=== PATIENT | female | born 1945 | race Caucasian/White ===

== ENCOUNTER → 2018-07-19 | Outpatient (CLI) | payer OTHER ==
[2018-07-19 18:44] LABS: ANION GAP 4 MEQ/L (8-16); BLOOD UREA NITROGEN 13 MG/DL (7-18); CALCIUM LEVEL 8.4 MG/DL (8.8-10.2); CARBON DIOXIDE LEVEL 29 MEQ/L (21-32); CHLORIDE LEVEL 110 MEQ/L (98-107); CREATININE FOR GFR 1.27 MG/DL (0.55-1.30); GLOMERULAR FILTRATION RATE 44.2 (>39); GLUCOSE, FASTING 89 MG/DL (70-100); POTASSIUM SERUM 4.6 MEQ/L (3.5-5.1); SODIUM LEVEL 143 MEQ/L (136-145)
== END ==
LOC: M WUC 13:29
DX: I10 Essential (primary) hypertension (principal); E78.5 Hyperlipidemia, unspecified
CPT/HCPCS: 80048

== ENCOUNTER → 2019-05-30 | Outpatient (CLI) | payer OTHER ==
--- NOTE | 2019-06-08 10:56 | DEXA ---
AP SPINE L1 - L4 1.308 0.9 2.6 LT FEMUR TOTAL 0.829 -1.4 0.2 LT NECK 0.770 -1.9 -0.1 RT FEMUR TOTAL 0.799 -1.7 -0.1 RT NECK 0.683 -2.6 -0.8 TOTAL BODY TOTAL OTHER L1-2 1.116 -0.5 1.9 COMMENTS: Normal bone densitometry of the spine. There is low bone density of the left hip. There is osteoporosis of the right hip. The increased density of the spine does represent a significant change. The increased density of the left hip does not represent significant change. The increased density of the right hip does not represent a significant change. The density of the L1-L2 spine has increased 12.2% since the initial exam on 01/07/2000. The L1-L2 spine density has increased 3.3% since the most recent exam on 03/31/2017. The density of the left hip has increased ointment .01% since the initial exam on 01/07/2000. The density of the left hip has increased 1.6% since the most recent exam on 03/31/2017. The density of the right hip has decreased 5.3% since the initial exam on 01/07/2000. The density of the right hip has increased 1.0% since the most recent exam on 03/31/2017. FOLLOW-UP: Recommendation for the next bone density exam: 2 years. EFREN
== END ==
LOC: M WHC 10:28
PROVIDERS: ATTEND Obstetrics & Gynecology
DX: Z13.820 Encounter for screening for osteoporosis (principal); M81.0 Age-related osteoporosis without current pathological fracture

== ENCOUNTER → 2019-07-12 | Outpatient (CLI) | payer OTHER ==
[2019-07-12 17:29] LABS: BASO # 0.1 10^3/uL (0.0-0.2); BASO % 1.2 % (0.0-1.0); EOS # 0.4 10^3/uL (0.0-0.5); EOS % 5.8 % (0.0-3.0); HEMATOCRIT 36.5 % (36.0-47.0); HEMOGLOBIN 12.3 g/dl (12.0-15.5); LYMPH # 2.3 10^3/uL (1.5-5.0); LYMPH % 30.5 % (24.0-44.0); MEAN CORPUSCULAR HEMOGLOBIN 31.8 pg (27.0-33.0); MEAN CORPUSCULAR HGB CONC 33.7 g/dl (32.0-36.5); MEAN CORPUSCULAR VOLUME 94.3 fl (80.0-96.0); MONO # 0.7 10^3/uL (0.0-0.8); MONO % 8.6 % (0.0-5.0); NEUTROPHILS # 4.1 10^3/uL (1.5-8.5); NEUTROPHILS % 53.5 % (36.0-66.0); PLATELET COUNT, AUTOMATED 260 10^3/uL (150-450); RED BLOOD COUNT 3.87 10^6/uL (4.00-5.40); WHITE BLOOD COUNT 7.7 10^3/uL (4.0-10.0)
[2019-07-12 17:38] LABS: APPEARANCE, URINE CLOUDY (CLEAR); BACTERIA, URINE AUTO 1+ (NEGATIVE); BILIRUBIN, URINE AUTO NEGATIVE (NEGATIVE); BLOOD, URINE BLOOD NEGATIVE (NEGATIVE); COLOR, URINE YELLOW (YELLOW); GLUCOSE, URINE (UA) AUTO NEGATIVE (NEGATIVE); KETONE, URINE AUTO NEGATIVE (NEGATIVE); LEUKOCYTE ESTERASE, URINE AUTO TRACE (NEGATIVE); MUCUS, URINE LARGE (NEGATIVE); NITRITE, URINE AUTO NEGATIVE (NEGATIVE); PROTEIN, URINE AUTO NEGATIVE (NEGATIVE); RBC, URINE AUTO 3 /HPF (0-3); SPECIFIC GRAVITY URINE AUTO 1.014 (1.002-1.035); SQUAMOUS EPITHELIAL CELL UR AU 15 /HPF (0-6); UROBILINOGEN, URINE AUTO 0.2 mg/dL (0.0-2.0); WBC, URINE AUTO 27 /HPF (0-3)
[2019-07-12 17:45] LABS: ALBUMIN 3.5 GM/DL (3.2-5.2); BILIRUBIN,TOTAL 0.7 MG/DL (0.2-1.0); CALCIUM LEVEL 9.2 MG/DL (8.8-10.2); CHOLESTEROL RISK RATIO 1.935 (<5); CREATININE FOR GFR 1.24 MG/DL (0.55-1.30); GLOMERULAR FILTRATION RATE 45.3 (>39); POTASSIUM SERUM 5.1 MEQ/L (3.5-5.1); THYROID STIMULATING HORMONE 1.36 uIU/ML (0.358-3.740); TOTAL PROTEIN 6.8 GM/DL (6.4-8.2)
== END ==
LOC: M WUC 12:13
DX: Z00.00 Encounter for general adult medical examination without abnormal findings (principal)

== ENCOUNTER → 2020-06-06 | Outpatient (CLI) | payer OTHER ==
[2020-06-06 18:40] LABS: ALBUMIN 3.7 GM/DL (3.2-5.2); BILIRUBIN,TOTAL 0.4 MG/DL (0.2-1.0); CALCIUM LEVEL 8.7 MG/DL (8.8-10.2); CHOLESTEROL RISK RATIO 2.293 (<5); CREATININE FOR GFR 1.19 MG/DL (0.55-1.30); GLOMERULAR FILTRATION RATE 47.3 (>39); POTASSIUM SERUM 4.4 MEQ/L (3.5-5.1)
== END ==
LOC: M WUC 14:40
PROVIDERS: ATTEND Internal Medicine Advanced Heart Failure and Transplant Cardiology
DX: E78.5 Hyperlipidemia, unspecified (principal)

== ENCOUNTER → 2022-07-16 | Outpatient (CLI) | payer OTHER ==
[2022-07-16 16:29] LABS: APPEARANCE, URINE MANUAL HAZY (CLEAR); COLOR, URINE MANUAL LT YELLOW (YELLOW)
[2022-07-16 16:30] LABS: BILIRUBIN, URINE MANUAL NEGATIVE (NEGATIVE); BLOOD URINE MANUAL NEGATIVE (NEGATIVE); GLUCOSE, URINE (UA) MANUAL NEGATIVE (NEGATIVE); KETONE, URINE MANUAL NEGATIVE (NEGATIVE); LEUKOCYTE ESTERASE, URINE MAN NEGATIVE (NEGATIVE); NITRITE, URINE MANUAL NEGATIVE (NEGATIVE); PROTEIN, URINE MANUAL NEGATIVE (NEGATIVE); UROBILINOGEN, URINE MANUAL NORMAL (NORMAL)
[2022-07-16 16:47] LABS: BASO # 0.1 10^3/uL (0.0-0.2); BASO % 0.7 % (0.0-1.0); EOS # 0.3 10^3/uL (0.0-0.5); EOS % 2.6 % (0.0-3.0); HEMATOCRIT 39.7 % (36.0-47.0); HEMOGLOBIN 13.1 g/dl (12.0-15.5); LYMPH # 2.3 10^3/uL (1.5-5.0); LYMPH % 22.6 % (24.0-44.0); MEAN CORPUSCULAR HEMOGLOBIN 31.1 pg (27.0-33.0); MEAN CORPUSCULAR VOLUME 94.3 fl (80.0-96.0); MONO # 0.9 10^3/uL (0.0-0.8); MONO % 9.1 % (2.0-8.0); NEUTROPHILS # 6.4 10^3/uL (1.5-8.5); NEUTROPHILS % 64.6 % (36.0-66.0); PLATELET COUNT, AUTOMATED 221 10^3/uL (150-450); RED BLOOD COUNT 4.21 10^6/uL (4.00-5.40)
[2022-07-16 16:51] LABS: BACTERIA, URINE SMALL AMOUNT; HYALINE CAST, URINE NONE SEEN /lpf (0-1); RBC, URINE NONE SEEN /hpf (0-3); SQUAMOUS EPITHELIAL CELL URINE LARGE AMOUNT /hpf (SMALL AMT)
[2022-07-16 17:32] LABS: HEMOGLOBIN A1c 5.4 %
[2022-07-16 17:36] LABS: ALBUMIN 3.8 GM/DL (3.2-5.2); BILIRUBIN,TOTAL 0.4 MG/DL (0.2-1.0); CHOLESTEROL RISK RATIO 1.94 (<5); CREATININE FOR GFR 1.25 MG/DL (0.55-1.30); FREE T4 1.32 NG/DL (0.76-1.46); GLOMERULAR FILTRATION RATE 44.5 (>39); THYROID STIMULATING HORMONE 0.656 uIU/ML (0.358-3.740); TOTAL PROTEIN 7.3 GM/DL (6.4-8.2)
== END ==
LOC: M WUC 14:18
DX: Z00.00 Encounter for general adult medical examination without abnormal findings (principal); E53.8 Deficiency of other specified B group vitamins; I10 Essential (primary) hypertension; R73.03 Prediabetes

== ENCOUNTER → 2023-06-23 | Outpatient (REF) | payer OTHER | LOC: M WUC 19:29 | PROVIDERS: ATTEND Nurse Practitioner Family | DX: R30.0 Dysuria (principal) ==

== ENCOUNTER → 2024-03-04 | Outpatient (REF) | payer OTHER | LOC: M WUC 18:56 | PROVIDERS: ATTEND Physician Assistant | DX: N30.01 Acute cystitis with hematuria (principal) ==

== ENCOUNTER → 2024-03-28 | Outpatient (REF) | payer OTHER ==
[2024-03-28 18:14] LABS: APPEARANCE, URINE HAZY (CLEAR); BACTERIA, URINE AUTO NEGATIVE (NEGATIVE); BILIRUBIN, URINE AUTO NEGATIVE (NEGATIVE); BLOOD, URINE BLOOD NEGATIVE (NEGATIVE); COLOR, URINE YELLOW (YELLOW); GLUCOSE, URINE (UA) AUTO NEGATIVE (NEGATIVE); KETONE, URINE AUTO NEGATIVE (NEGATIVE); LEUKOCYTE ESTERASE, URINE AUTO 3+ (NEGATIVE); NITRITE, URINE AUTO NEGATIVE (NEGATIVE); PROTEIN, URINE AUTO NEGATIVE (NEGATIVE); RBC, URINE AUTO 3 /HPF (0-3); SPECIFIC GRAVITY URINE AUTO 1.017 (1.002-1.035); SQUAMOUS EPITHELIAL CELL UR AU 7 /HPF (0-6); UROBILINOGEN, URINE AUTO 0.2 mg/dL (0.0-2.0); WBC, URINE AUTO 17 /HPF (0-3)
== END ==
LOC: M LABWUC 16:05
PROVIDERS: ATTEND Physician Assistant
DX: R31.29 Other microscopic hematuria (principal); R30.0 Dysuria

== ENCOUNTER → 2024-03-30 | Outpatient (REF) | payer OTHER | LOC: M LABWUC 16:13 | PROVIDERS: ATTEND Physician Assistant | DX: R39.9 Unspecified symptoms and signs involving the genitourinary system (principal) ==

== ENCOUNTER 2024-04-10 18:19 | Inpatient (IN) | payer OTHER ==
[~2024-04-10] VITALS: Ht 154.9 cm; Wt 75.9 kg
[2024-04-10 19:05] LABS: BASO % 0.2 % (0.0-1.0); EOS # 0.1 10^3/uL (0.0-0.5); EOS % 1.1 % (0.0-3.0); HEMATOCRIT 31.9 % (36.0-47.0); HEMOGLOBIN 10.9 g/dl (12.0-15.5); LYMPH # 1.5 10^3/uL (1.5-5.0); MEAN CORPUSCULAR HEMOGLOBIN 33.4 pg (27.0-33.0); MEAN CORPUSCULAR HGB CONC 34.2 g/dl (32.0-36.5); MEAN CORPUSCULAR VOLUME 97.9 fl (80.0-96.0); MONO # 1.9 10^3/uL (0.0-0.8); MONO % 14.8 % (2.0-8.0); NEUTROPHILS # 9.2 10^3/uL (1.5-8.5); NEUTROPHILS % 71.5 % (36.0-66.0); PLATELET COUNT, AUTOMATED 189 10^3/uL (150-450); RED BLOOD COUNT 3.26 10^6/uL (4.00-5.40); WHITE BLOOD COUNT 12.9 10^3/uL (4.0-10.0)
[2024-04-10 19:30] LABS: BILIRUBIN,DIRECT 0.1 MG/DL (<0.4); BILIRUBIN,TOTAL 0.4 MG/DL (0.3-1.2); CALCIUM LEVEL 7.6 MG/DL (8.3-10.6); CREATININE FOR GFR 1.87 MG/DL (0.55-1.30); GLOMERULAR FILTRATION RATE 27.8 (>39); POTASSIUM SERUM 4.7 MMOL/L (3.5-5.1); TOTAL PROTEIN 5.8 G/DL (5.7-8.2)
[2024-04-10 20:18] LABS: CK-MB VALUE MASS 1.2 NG/ML (<3.6)
[2024-04-10] MEDS: METOCLOPRAMIDE INJ 10MG/2ML VIAL IV ONE (20:19)
[2024-04-10] MEDS: NS 1,000 ML IV ONE (20:20)
[2024-04-10 20:23] LABS: MAGNESIUM LEVEL 1.4 MG/DL (1.8-2.4)
[2024-04-10 20:24] LABS: MB/CK RELATIVE INDEX 0.49 (< OR =4)
[2024-04-10 20:27] LABS: PROCALCITONIN 0.27 ng/ml
[2024-04-10] MEDS: MAG SULF 1GM/100ML (MAG RUN) 1 GM in IV 1 EA IV ONE (22:00)
[2024-04-10 22:57] LABS: CK-MB VALUE MASS 1.1 NG/ML (<3.6)
[2024-04-10 23:05] LABS: MB/CK RELATIVE INDEX 0.31 (< OR =4)
[2024-04-11] MEDS ORDERED: ACETAMINOPHEN TAB 650MG DOSE (2X325MG) PO PRN (00:45)
[2024-04-11] MEDS: NS 1,000 ML IV SCH (00:45)
[2024-04-11] MEDS ORDERED: ONDANSETRON 4MG TAB PO PRN (00:50)
[2024-04-11] MEDS ORDERED: HYDR50TA70 PO (01:56)
[2024-04-11] MEDS ORDERED: OMEP-173 PO (01:56)
[2024-04-11] MEDS ORDERED: GABA600T4 PO (01:56)
[2024-04-11] MEDS ORDERED: PROP80TA PO (01:56)
[2024-04-11] MEDS ORDERED: MUPI30CR TOP (01:56)
[2024-04-11] MEDS ORDERED: ROSU40TA63 PO (01:56)
[2024-04-11] MEDS ORDERED: LOSA50TA28 PO (01:56)
[2024-04-11] MEDS ORDERED: BUPR150T12 PO (01:56)
[2024-04-11] MEDS ORDERED: ESTR10TA PV (01:56)
[2024-04-11] MEDS ORDERED: HOME MED LIST COMPLETE! XX SCH (02:00)
[2024-04-11] MEDS: HEPARIN SOD (PORCINE) 5000UNITS/ML 1ML VIAL/SYRINGE SC SCH ×2 (06:09→20:13)
[2024-04-11 08:49] LABS: CALCIUM LEVEL 7.6 MG/DL (8.3-10.6); CREATININE FOR GFR 1.28 MG/DL (0.55-1.30); MAGNESIUM LEVEL 1.7 MG/DL (1.8-2.4); POTASSIUM SERUM 3.9 MMOL/L (3.5-5.1)
[2024-04-11 09:00] VITALS: BP 127/52; TEMP 97.7; O2SAT 92
[2024-04-11] MEDS: ROSUVASTATIN 10 MG TAB (CRESTOR) PO SCH (09:16)
[2024-04-11] MEDS: hydrOXYzine 50 MG TAB PO SCH (09:16)
[2024-04-11] MEDS: buPROPion **XL** TABLET 150MG (WELLBUTRIN XL) PO SCH (09:16)
[2024-04-11] MEDS: GABAPENTIN 100 MG CAP PO SCH (09:16)
[2024-04-11] MEDS: OMEPRAZOLE 20MG CAP PO SCH (09:16)
[2024-04-11] MEDS: MAG SULF 1GM/100ML (MAG RUN) 1 GM in IV 1 EA IV ONE (11:16)
[2024-04-11 12:00] VITALS: BP 113/50; TEMP 97.5; O2SAT 90
[2024-04-11] MEDS: GABAPENTIN 300 MG CAP PO SCH (15:38)
[2024-04-11 16:00] VITALS: BP 131/69; TEMP 97.7; O2SAT 92
[2024-04-11 20:00] VITALS: BP 137/70; TEMP 97.7; O2SAT 96
[2024-04-12 04:00] VITALS: BP 137/69; TEMP 97.9; O2SAT 93
[2024-04-12 07:55] VITALS: BP 134/69; TEMP 97.7; O2SAT 90
[2024-04-12 08:25] VITALS: BP 148/69; TEMP 97; O2SAT 95
[2024-04-12 08:34] LABS: BASO # 0.1 10^3/uL (0.0-0.2); BASO % 0.6 % (0.0-1.0); EOS # 0.5 10^3/uL (0.0-0.5); HEMOGLOBIN 10.5 g/dl (12.0-15.5); LYMPH # 1.8 10^3/uL (1.5-5.0); LYMPH % 20.1 % (24.0-44.0); MEAN CORPUSCULAR HGB CONC 33.9 g/dl (32.0-36.5); MEAN CORPUSCULAR VOLUME 97.5 fl (80.0-96.0); MONO # 1.1 10^3/uL (0.0-0.8); MONO % 12.5 % (2.0-8.0); NEUTROPHILS # 5.5 10^3/uL (1.5-8.5); NEUTROPHILS % 60.4 % (36.0-66.0); PLATELET COUNT, AUTOMATED 191 10^3/uL (150-450); RED BLOOD COUNT 3.18 10^6/uL (4.00-5.40); WHITE BLOOD COUNT 9.1 10^3/uL (4.0-10.0)
[2024-04-12 08:56] LABS: CALCIUM LEVEL 7.8 MG/DL (8.3-10.6); CREATININE FOR GFR 0.96 MG/DL (0.55-1.30); MAGNESIUM LEVEL 1.5 MG/DL (1.8-2.4); POTASSIUM SERUM 3.8 MMOL/L (3.5-5.1)
[2024-04-12] MEDS: MAGNESIUM OXIDE 400MG TAB (MAG-OX) PO SCH (09:16)
[2024-04-12] MEDS: MAG SULF 1GM/100ML (MAG RUN) 1 GM in IV 1 EA IV ONE (09:16)
[2024-04-12 11:48] VITALS: BP 140/68; TEMP 97.7; O2SAT 93
[2024-04-12] MEDS ORDERED: AMLO1TAB24 PO (12:03)
[2024-04-12] MEDS ORDERED: ONDA-282 PO (13:35)
== END 2024-04-12 15:18 | disposition home or self-care (01) | DRG 392 ==
LOC: M ED 18:19 → INTOOBSV 04-11 01:18 → M ED INP 04-11 01:18 → UNDOADMOB 04-11 01:18 → M MSPAV 04-11 09:42 → M ED INP 04-11 09:42 → UNDODISOB 04-12 15:18
PROVIDERS: ADMIT Preventive Medicine Undersea and Hyperbaric Medicine; ATTEND Internal Medicine Nephrology
DX: A08.4 Viral intestinal infection, unspecified (principal); N17.9 Acute kidney failure, unspecified; E86.0 Dehydration; I12.9 Hypertensive chronic kidney disease with stage 1 through stage 4 chronic kidney disease, or unspecified chronic kidney disease; E83.42 Hypomagnesemia; E78.5 Hyperlipidemia, unspecified; F41.9 Anxiety disorder, unspecified; F32.A Depression, unspecified; K21.9 Gastro-esophageal reflux disease without esophagitis; G62.9 Polyneuropathy, unspecified; K44.9 Diaphragmatic hernia without obstruction or gangrene; K57.30 Diverticulosis of large intestine without perforation or abscess without bleeding; M48.061 Spinal stenosis, lumbar region without neurogenic claudication; R09.02 Hypoxemia; I95.89 Other hypotension; N18.30 Chronic kidney disease, stage 3 unspecified; R26.81 Unsteadiness on feet; R53.83 Other fatigue; Z79.899 Other long term (current) drug therapy

== ENCOUNTER 2024-04-14 23:02 | Inpatient (IN) | payer OTHER ==
[~2024-04-14] VITALS: Ht 154.9 cm; Wt 73.2 kg
[~2024-04-14 23:02] MED LIST: AMLO1TAB24 PO; BUPR150T12 PO; ESTR10TA PV; GABA600T4 PO; HYDR50TA70 PO; LOSA50TA28 PO; MUPI30CR TOP; OMEP-173 PO; ONDA-282 PO; PROP80TA PO; ROSU40TA63 PO
[2024-04-15] MEDS: NS 1,000 ML IV ONE (00:24)
[2024-04-15 01:27] LABS: VENOUS HCO3 27.4 MMOL/L (23.0-27.0); VENOUS O2 SATURATION 99.1 % (60.0-80.0); VENOUS PARTIAL PRESSURE CO2 32.9 mmHg (38.0-50.0); VENOUS PARTIAL PRESSURE O2 147.5 mmHg (30.0-50.0); VENOUS PH 7.539 UNITS (7.330-7.430); VENOUS TOTAL CO2 28.4 MMOL/L (24.0-28.0)
[2024-04-15 01:31] LABS: BASO # 0.1 10^3/uL (0.0-0.2); BASO % 0.5 % (0.0-1.0); EOS # 0.1 10^3/uL (0.0-0.5); EOS % 1.1 % (0.0-3.0); HEMATOCRIT 31.2 % (36.0-47.0); HEMOGLOBIN 10.7 g/dl (12.0-15.5); LYMPH # 2.3 10^3/uL (1.5-5.0); LYMPH % 22.5 % (24.0-44.0); MEAN CORPUSCULAR HEMOGLOBIN 32.4 pg (27.0-33.0); MEAN CORPUSCULAR HGB CONC 34.3 g/dl (32.0-36.5); MEAN CORPUSCULAR VOLUME 94.5 fl (80.0-96.0); MONO # 1.4 10^3/uL (0.0-0.8); MONO % 13.2 % (2.0-8.0); NEUTROPHILS # 6.3 10^3/uL (1.5-8.5); NEUTROPHILS % 60.5 % (36.0-66.0); PLATELET COUNT, AUTOMATED 254 10^3/uL (150-450); WHITE BLOOD COUNT 10.3 10^3/uL (4.0-10.0)
[2024-04-15 01:55] LABS: ETHYL ALCOHOL (ETHANOL) < 0.003 % (0.000-0.010)
[2024-04-15 01:56] LABS: CPK CREATINE PHOSPHOKINASE 239 U/L (34-145)
[2024-04-15 01:57] LABS: SALICYLATE LEVEL < 3.0 MG/DL (<30)
[2024-04-15 02:05] LABS: ALBUMIN 2.7 G/DL (3.2-5.2); ALKALINE PHOSPHATASE 49 U/L (46-116); ALT/SGPT 24 U/L (7.0-40); AST/SGOT 25 U/L (<34); BILIRUBIN,DIRECT 0.2 MG/DL (<0.4); BILIRUBIN,TOTAL 0.5 MG/DL (0.3-1.2); BLOOD UREA NITROGEN < 5 MG/DL (9-23); CALCIUM LEVEL 8.6 MG/DL (8.3-10.6); CARBON DIOXIDE LEVEL 29 MMOL/L (20-31); CHLORIDE LEVEL 102 MMOL/L (98-107); CK-MB VALUE MASS 2.3 NG/ML (<3.6); CREATININE FOR GFR 0.85 MG/DL (0.55-1.30); GLOMERULAR FILTRATION RATE > 60.0 (>39); GLUCOSE, FASTING 89 MG/DL (74-106); MAGNESIUM LEVEL 0.9 MG/DL (1.8-2.4); MB/CK RELATIVE INDEX 0.96 (< OR =4); POTASSIUM SERUM 3.4 MMOL/L (3.5-5.1); SODIUM LEVEL 138 MMOL/L (136-145); TOTAL PROTEIN 5.6 G/DL (5.7-8.2)
[2024-04-15] MEDS: MAG SULF 1GM/100ML (MAG RUN) 1 GM in IV 1 EA IV ONE ×2 (02:30→04:33)
[2024-04-15 02:31] LABS: OSMOLALITY SERUM 290 MOSM/KG (280-301)
[2024-04-15 03:40] LABS: CK-MB VALUE MASS 2.9 NG/ML (<3.6)
[2024-04-15 03:43] LABS: MB/CK RELATIVE INDEX 0.87 (< OR =4)
[2024-04-15] MEDS ORDERED: AMLO1TAB24 PO (04:54)
[2024-04-15] MEDS ORDERED: KCL 10MEQ/100ML SWI (KRUN) 10 MEQ in IV 1 EA IV SCH (05:00)
[2024-04-15] MEDS ORDERED: SUMA50TA2 PO (05:04)
[2024-04-15] MEDS ORDERED: GLUC500C37 PO (05:04)
[2024-04-15] MEDS ORDERED: BIOT1CAP2 PO (05:04)
[2024-04-15] MEDS ORDERED: ONDA-282 PO (05:04)
[2024-04-15] MEDS ORDERED: D-MA500C2 PO (05:04)
[2024-04-15] MEDS ORDERED: THIA100T7 PO (05:04)
[2024-04-15] MEDS ORDERED: MULT-40 PO (05:04)
[2024-04-15] MEDS ORDERED: CRAN500C11 PO (05:04)
[2024-04-15] MEDS ORDERED: ACET650T61 PO (05:04)
[2024-04-15] MEDS ORDERED: HOME MED LIST COMPLETE! XX SCH (05:05)
[2024-04-15] MEDS: NS 1,000 ML IV SCH (05:17)
[2024-04-15] MEDS: POTASSIUM CHLORIDE 10% LIQ 20MEQ/15ML UDC PO ONE (05:17)
[2024-04-15 05:53] LABS: PROCALCITONIN 0.09 ng/ml
[2024-04-15] MEDS: MAG SULF 1GM/100ML (MAG RUN) 1 GM in IV 1 EA IV SCH (06:14)
[2024-04-15 07:50] VITALS: BP 149/67; TEMP 97.3; O2SAT 94
[2024-04-15] MEDS: KCL 10MEQ/100ML SWI (KRUN) 10 MEQ in IV 1 EA IV SCH (08:22)
[2024-04-15 08:42] LABS: HEMATOCRIT 36.8 % (36.0-47.0); MEAN CORPUSCULAR HEMOGLOBIN 32.4 pg (27.0-33.0); MEAN CORPUSCULAR HGB CONC 32.6 g/dl (32.0-36.5); MEAN CORPUSCULAR VOLUME 99.5 fl (80.0-96.0); PLATELET COUNT, AUTOMATED 263 10^3/uL (150-450); WHITE BLOOD COUNT 10.3 10^3/uL (4.0-10.0)
[2024-04-15 09:27] LABS: BLOOD UREA NITROGEN < 5 MG/DL (9-23); CALCIUM LEVEL 8.7 MG/DL (8.3-10.6); CARBON DIOXIDE LEVEL 17 MMOL/L (20-31); CHLORIDE LEVEL 107 MMOL/L (98-107); CREATININE FOR GFR 0.81 MG/DL (0.55-1.30); GLOMERULAR FILTRATION RATE > 60.0 (>39); GLUCOSE, FASTING 94 MG/DL (74-106); POTASSIUM SERUM 4.3 MMOL/L (3.5-5.1); SODIUM LEVEL 138 MMOL/L (136-145)
[2024-04-15] MEDS: ENOXAPARIN 40MG/0.4ML SYRINGE (J1650 PER 10MG) SC SCH (10:26)
[2024-04-15] MEDS: MOM 30ML SUSPENSION UDC PO PRN (10:26)
[2024-04-15] MEDS: DOCUSATE SODIUM 100MG CAPSULE PO SCH (10:26)
[2024-04-15 11:33] VITALS: BP 149/65; TEMP 97.5; O2SAT 91
[2024-04-15] MEDS: GABAPENTIN 400MG CAP PO SCH (14:44)
[2024-04-15 16:23] VITALS: BP 169/73; TEMP 97.7; O2SAT 97
[2024-04-15 19:00] VITALS: BP 121/58; TEMP 97; O2SAT 94
[2024-04-15 23:00] VITALS: BP 160/69; TEMP 97.3; O2SAT 94
[2024-04-16] VITALS (8 sets, daily range): BP systolic 135–151; BP diastolic 58–67; TEMP 96.6–97.9; O2SAT 92–97
[2024-04-16 04:34] LABS: BASO # 0.1 10^3/uL (0.0-0.2); BASO % 0.8 % (0.0-1.0); EOS # 0.6 10^3/uL (0.0-0.5); EOS % 5.5 % (0.0-3.0); HEMATOCRIT 31.4 % (36.0-47.0); HEMOGLOBIN 10.5 g/dl (12.0-15.5); LYMPH # 2.9 10^3/uL (1.5-5.0); LYMPH % 27.4 % (24.0-44.0); MEAN CORPUSCULAR HEMOGLOBIN 32.6 pg (27.0-33.0); MEAN CORPUSCULAR HGB CONC 33.4 g/dl (32.0-36.5); MEAN CORPUSCULAR VOLUME 97.5 fl (80.0-96.0); MONO # 1.3 10^3/uL (0.0-0.8); NEUTROPHILS # 5.5 10^3/uL (1.5-8.5); NEUTROPHILS % 51.9 % (36.0-66.0); PLATELET COUNT, AUTOMATED 257 10^3/uL (150-450); RED BLOOD COUNT 3.22 10^6/uL (4.00-5.40); WHITE BLOOD COUNT 10.5 10^3/uL (4.0-10.0)
[2024-04-16 05:04] LABS: CK-MB VALUE MASS 1.9 NG/ML (<3.6)
[2024-04-16 05:05] LABS: CPK CREATINE PHOSPHOKINASE 227 U/L (34-145); MB/CK RELATIVE INDEX 0.83 (< OR =4)
[2024-04-16 05:13] LABS: ALBUMIN 2.6 G/DL (3.2-5.2); ALKALINE PHOSPHATASE 47 U/L (46-116); ALT/SGPT 21 U/L (7.0-40); AST/SGOT 23 U/L (<34); BILIRUBIN,TOTAL 0.5 MG/DL (0.3-1.2); BLOOD UREA NITROGEN 8 MG/DL (9-23); CALCIUM LEVEL 8.4 MG/DL (8.3-10.6); CARBON DIOXIDE LEVEL 29 MMOL/L (20-31); CHLORIDE LEVEL 109 MMOL/L (98-107); CREATININE FOR GFR 0.89 MG/DL (0.55-1.30); GLOMERULAR FILTRATION RATE > 60.0 (>39); GLUCOSE, FASTING 86 MG/DL (74-106); POTASSIUM SERUM 3.8 MMOL/L (3.5-5.1); SODIUM LEVEL 143 MMOL/L (136-145); TOTAL PROTEIN 5.3 G/DL (5.7-8.2)
[2024-04-16] MEDS: MAG SULF 1GM/100ML (MAG RUN) 1 GM in IV 1 EA IV SCH (12:52)
[2024-04-16] MEDS: NYSTATIN 100,000 UNITS/GM TOPICAL PWD 15GM TOP SCH (14:22)
[2024-04-17 03:00] VITALS: BP 147/67; TEMP 97.3; O2SAT 91
[2024-04-17 04:18] LABS: BASO # 0.1 10^3/uL (0.0-0.2); BASO % 0.8 % (0.0-1.0); EOS # 0.7 10^3/uL (0.0-0.5); EOS % 6.2 % (0.0-3.0); HEMATOCRIT 32.1 % (36.0-47.0); HEMOGLOBIN 10.8 g/dl (12.0-15.5); LYMPH # 3.3 10^3/uL (1.5-5.0); LYMPH % 27.7 % (24.0-44.0); MEAN CORPUSCULAR HEMOGLOBIN 32.2 pg (27.0-33.0); MEAN CORPUSCULAR HGB CONC 33.6 g/dl (32.0-36.5); MEAN CORPUSCULAR VOLUME 95.8 fl (80.0-96.0); MONO # 1.5 10^3/uL (0.0-0.8); MONO % 12.2 % (2.0-8.0); NEUTROPHILS # 6.1 10^3/uL (1.5-8.5); NEUTROPHILS % 50.8 % (36.0-66.0); PLATELET COUNT, AUTOMATED 272 10^3/uL (150-450); RED BLOOD COUNT 3.35 10^6/uL (4.00-5.40)
[2024-04-17 05:09] LABS: CALCIUM LEVEL 8.3 MG/DL (8.3-10.6); CREATININE FOR GFR 1.02 MG/DL (0.55-1.30); GLOMERULAR FILTRATION RATE 55.9 (>39); MAGNESIUM LEVEL 1.7 MG/DL (1.8-2.4)
[2024-04-17 07:19] VITALS: BP 146/67; TEMP 97.6; O2SAT 97
[2024-04-17] MEDS: MAG SULF 1GM/100ML (MAG RUN) 1 GM in IV 1 EA IV SCH (08:20)
[2024-04-17 11:21] VITALS: BP 140/66; TEMP 97.5; O2SAT 92
[2024-04-17 19:33] VITALS: BP 135/60; TEMP 97.2; O2SAT 94
[2024-04-17 20:15] VITALS: BP 132/63; TEMP 97.5; O2SAT 94
[2024-04-18 03:12] VITALS: BP 134/64; TEMP 97.8; O2SAT 95
[2024-04-18 05:45] LABS: BASO # 0.1 10^3/uL (0.0-0.2); BASO % 0.9 % (0.0-1.0); EOS # 0.6 10^3/uL (0.0-0.5); EOS % 6.3 % (0.0-3.0); HEMATOCRIT 31.1 % (36.0-47.0); HEMOGLOBIN 10.4 g/dl (12.0-15.5); LYMPH # 3.1 10^3/uL (1.5-5.0); LYMPH % 30.8 % (24.0-44.0); MEAN CORPUSCULAR HEMOGLOBIN 32.4 pg (27.0-33.0); MEAN CORPUSCULAR HGB CONC 33.4 g/dl (32.0-36.5); MEAN CORPUSCULAR VOLUME 96.9 fl (80.0-96.0); MONO # 1.2 10^3/uL (0.0-0.8); MONO % 11.7 % (2.0-8.0); NEUTROPHILS # 4.7 10^3/uL (1.5-8.5); NEUTROPHILS % 47.8 % (36.0-66.0); PLATELET COUNT, AUTOMATED 272 10^3/uL (150-450); RED BLOOD COUNT 3.21 10^6/uL (4.00-5.40); WHITE BLOOD COUNT 9.9 10^3/uL (4.0-10.0)
[2024-04-18 06:19] LABS: BLOOD UREA NITROGEN 28 MG/DL (9-23); CALCIUM LEVEL 8.2 MG/DL (8.3-10.6); CARBON DIOXIDE LEVEL 29 MMOL/L (20-31); CHLORIDE LEVEL 106 MMOL/L (98-107); CREATININE FOR GFR 0.93 MG/DL (0.55-1.30); GLOMERULAR FILTRATION RATE > 60.0 (>39); GLUCOSE, FASTING 95 MG/DL (74-106); MAGNESIUM LEVEL 1.7 MG/DL (1.8-2.4); POTASSIUM SERUM 5.2 MMOL/L (3.5-5.1); SODIUM LEVEL 141 MMOL/L (136-145)
[2024-04-18 07:17] VITALS: BP 134/63; TEMP 97.5; O2SAT 93
[2024-04-18] MEDS: MAGNESIUM OXIDE 400MG TAB (MAG-OX) PO SCH (08:32)
[2024-04-18] MEDS: MAG SULF 1GM/100ML (MAG RUN) 1 GM in IV 1 EA IV ONE (08:32)
[2024-04-18] MEDS ORDERED: MAGN400T2 PO (11:27)
[2024-04-18 16:00] VITALS: BP 144/72; TEMP 98.2; O2SAT 93
[2024-04-18 19:40] VITALS: BP 149/84; TEMP 98.4; O2SAT 98
[2024-04-18 21:11] LABS: CK 1 (BB) 0 % (0); CK 2 (MB) 0 % (0-3); CK 3 (MM) 100 % (97-100); CK MACRO I PERCENT 0 % (Not Observed); CK MACRO II PERCENT 0 % (Not Observed); CK TOTAL 228 U/L (32-182)
[2024-04-19 04:11] VITALS: BP 131/65; TEMP 98.1; O2SAT 95
[2024-04-19 12:00] VITALS: BP 149/92; TEMP 98.4; O2SAT 96
[2024-04-19 20:16] VITALS: BP 152/86; TEMP 97.9; O2SAT 100
[2024-04-20 04:27] VITALS: BP 124/59; TEMP 98.8; O2SAT 99
[2024-04-20] MEDS ORDERED: LOPE2TAB12 PO (10:20)
[2024-04-20] MEDS ORDERED: ESSE250T PO (10:20)
[2024-04-20] MEDS: LOPERAMIDE 2 MG CAPLET PO ONE (13:56)
== END 2024-04-20 14:45 | disposition home health service (06) | DRG 640 ==
LOC: M ED 23:02 → M ED INP 04-15 05:01 → M PCU 04-15 07:44 → M MS5PR 04-18 15:15
PROVIDERS: ADMIT Family Medicine; ATTEND Preventive Medicine Undersea and Hyperbaric Medicine
PROC: B246ZZZ Ultrasonography of Right and Left Heart (ICD-10-PCS; principal; 2024-04-15)
DX: E83.42 Hypomagnesemia (principal); G93.41 Metabolic encephalopathy; I24.89 Other forms of acute ischemic heart disease; I12.9 Hypertensive chronic kidney disease with stage 1 through stage 4 chronic kidney disease, or unspecified chronic kidney disease; E78.5 Hyperlipidemia, unspecified; N18.30 Chronic kidney disease, stage 3 unspecified; F32.A Depression, unspecified; F41.9 Anxiety disorder, unspecified; K21.9 Gastro-esophageal reflux disease without esophagitis; G62.9 Polyneuropathy, unspecified; K44.9 Diaphragmatic hernia without obstruction or gangrene; R26.89 Other abnormalities of gait and mobility; M48.061 Spinal stenosis, lumbar region without neurogenic claudication; E87.6 Hypokalemia; G25.0 Essential tremor; E86.0 Dehydration; I27.20 Pulmonary hypertension, unspecified; G93.89 Other specified disorders of brain; F03.90 Unspecified dementia, unspecified severity, without behavioral disturbance, psychotic disturbance, mood disturbance, and anxiety; I67.2 Cerebral atherosclerosis; Z79.899 Other long term (current) drug therapy

== ENCOUNTER 2024-04-21 18:39 | Inpatient (IN) | payer OTHER ==
[~2024-04-21] VITALS: Ht 154.9 cm; Wt 68.2 kg
[~2024-04-21 18:39] MED LIST changes: +ACET650T61 PO; +BIOT1CAP2 PO; +CRAN500C11 PO; +D-MA500C2 PO; +ESSE250T PO; +GLUC500C37 PO; +LOPE2TAB12 PO; +MAGN400T2 PO; +MULT-40 PO; +SUMA50TA2 PO; +THIA100T7 PO
[2024-04-21 20:14] LABS: BASO # 0.1 10^3/uL (0.0-0.2); BASO % 0.5 % (0.0-1.0); EOS # 0.2 10^3/uL (0.0-0.5); EOS % 1.4 % (0.0-3.0); HEMATOCRIT 32.9 % (36.0-47.0); HEMOGLOBIN 11.1 g/dl (12.0-15.5); LYMPH # 2.3 10^3/uL (1.5-5.0); LYMPH % 15.9 % (24.0-44.0); MEAN CORPUSCULAR HEMOGLOBIN 32.4 pg (27.0-33.0); MEAN CORPUSCULAR HGB CONC 33.7 g/dl (32.0-36.5); MEAN CORPUSCULAR VOLUME 95.9 fl (80.0-96.0); MONO # 0.8 10^3/uL (0.0-0.8); MONO % 5.7 % (2.0-8.0); NEUTROPHILS # 11.1 10^3/uL (1.5-8.5); NEUTROPHILS % 75.9 % (36.0-66.0); PLATELET COUNT, AUTOMATED 293 10^3/uL (150-450); RED BLOOD COUNT 3.43 10^6/uL (4.00-5.40); WHITE BLOOD COUNT 14.7 10^3/uL (4.0-10.0)
[2024-04-21 20:44] LABS: LIPASE 76 U/L (12-53)
[2024-04-21 20:46] LABS: ALKALINE PHOSPHATASE 59 U/L (46-116); ALT/SGPT 23 U/L (7.0-40); AST/SGOT 23 U/L (<34); BILIRUBIN,DIRECT 0.1 MG/DL (<0.4); BILIRUBIN,TOTAL 0.5 MG/DL (0.3-1.2); BLOOD UREA NITROGEN 15 MG/DL (9-23); CALCIUM LEVEL 8.6 MG/DL (8.3-10.6); CARBON DIOXIDE LEVEL 25 MMOL/L (20-31); CHLORIDE LEVEL 101 MMOL/L (98-107); GLOMERULAR FILTRATION RATE > 60.0 (>39); GLUCOSE, FASTING 141 MG/DL (74-106); MAGNESIUM LEVEL 1.1 MG/DL (1.8-2.4); POTASSIUM SERUM 3.3 MMOL/L (3.5-5.1); SODIUM LEVEL 135 MMOL/L (136-145); TOTAL PROTEIN 6.1 G/DL (5.7-8.2)
[2024-04-22 02:59] LABS: THYROID STIMULATING HORMONE 1.018 uIU/ML (0.55-4.78)
[2024-04-22] MEDS: MAG SULF 1GM/100ML (MAG RUN) 1 GM in IV 1 EA IV ONE ×2 (03:38→12:03)
[2024-04-22] MEDS ORDERED: ESSE250T PO (05:13)
[2024-04-22] MEDS ORDERED: LOPE1CAP5 PO (05:13)
[2024-04-22] MEDS ORDERED: HOME MED LIST COMPLETE! XX SCH (05:15)
[2024-04-22] MEDS ORDERED: metroNIDAZOLE 500 MG in IV 1 EA IV SCH (06:00)
[2024-04-22] MEDS: NS 1,000 ML IV ONE (06:02)
[2024-04-22] MEDS: cefTRIAXone SOD 1 GM in D5W MINI-BAG PLUS 50 ML IV SCH (06:11)
[2024-04-22] MEDS: POTASSIUM CHLORIDE 10MEQ SR TABLET PO ONE (06:11)
[2024-04-22 06:43] LABS: ALBUMIN 3.2 G/DL (3.2-5.2); ALKALINE PHOSPHATASE 60 U/L (46-116); ALT/SGPT 24 U/L (7.0-40); AST/SGOT 22 U/L (<34); BILIRUBIN,TOTAL 0.5 MG/DL (0.3-1.2); BLOOD UREA NITROGEN 13 MG/DL (9-23); CALCIUM LEVEL 9.1 MG/DL (8.3-10.6); CARBON DIOXIDE LEVEL 30 MMOL/L (20-31); CHLORIDE LEVEL 103 MMOL/L (98-107); CREATININE FOR GFR 0.93 MG/DL (0.55-1.30); GLOMERULAR FILTRATION RATE > 60.0 (>39); GLUCOSE, FASTING 96 MG/DL (74-106); POTASSIUM SERUM 3.7 MMOL/L (3.5-5.1); SODIUM LEVEL 141 MMOL/L (136-145); TOTAL PROTEIN 6.5 G/DL (5.7-8.2)
[2024-04-22 07:24] LABS: MAGNESIUM LEVEL 1.8 MG/DL (1.8-2.4)
[2024-04-22 08:43] VITALS: BP 130/67; TEMP 97.5; O2SAT 96
[2024-04-22] MEDS: PROPRANOLOL 20 MG TAB PO SCH (09:11)
[2024-04-22] MEDS: ONDANSETRON 4MG 2ML VIAL IV PRN (09:11)
[2024-04-22] MEDS: OMEPRAZOLE 20MG CAP PO SCH (09:14)
[2024-04-22] MEDS: ROSUVASTATIN 10 MG TAB (CRESTOR) PO SCH (09:14)
[2024-04-22] MEDS: amLODIPine 5 MG TAB PO SCH (09:14)
[2024-04-22] MEDS: THIAMINE 100 MG TAB PO SCH (09:14)
[2024-04-22] MEDS: GABAPENTIN 300 MG CAP PO SCH (09:14)
[2024-04-22] MEDS: buPROPion **XL** TABLET 150MG (WELLBUTRIN XL) PO SCH (09:14)
[2024-04-22] MEDS: ENOXAPARIN 40MG/0.4ML SYRINGE (J1650 PER 10MG) SC SCH (09:15)
[2024-04-22] MEDS: SUMAtriptan SUCCINATE 25 MG TAB PO PRN (09:18)
[2024-04-22 11:03] LABS: BASO # 0.1 10^3/uL (0.0-0.2); BASO % 0.6 % (0.0-1.0); EOS # 0.5 10^3/uL (0.0-0.5); EOS % 3.9 % (0.0-3.0); HEMOGLOBIN 11.6 g/dl (12.0-15.5); LYMPH # 2.5 10^3/uL (1.5-5.0); LYMPH % 20.2 % (24.0-44.0); MEAN CORPUSCULAR HEMOGLOBIN 34.1 pg (27.0-33.0); MEAN CORPUSCULAR HGB CONC 34.1 g/dl (32.0-36.5); NEUTROPHILS # 8.3 10^3/uL (1.5-8.5); NEUTROPHILS % 66.3 % (36.0-66.0); PLATELET COUNT, AUTOMATED 300 10^3/uL (150-450); WHITE BLOOD COUNT 12.5 10^3/uL (4.0-10.0)
[2024-04-22 12:00] VITALS: BP 102/47; TEMP 97.5; O2SAT 92
[2024-04-22] MEDS: NYSTATIN 100,000 UNITS/GM TOPICAL PWD 15GM TOP SCH (12:00)
[2024-04-22 20:21] VITALS: BP 102/69; TEMP 98.7; O2SAT 95
[2024-04-23] VITALS: BP 104/60; TEMP 97.7; O2SAT 96
[2024-04-23 04:00] VITALS: BP 106/52; TEMP 97.5; O2SAT 96
[2024-04-23 06:41] LABS: CALCIUM LEVEL 8.2 MG/DL (8.3-10.6); CREATININE FOR GFR 1.12 MG/DL (0.55-1.30); GLOMERULAR FILTRATION RATE 50.2 (>39); MAGNESIUM LEVEL 1.7 MG/DL (1.8-2.4)
[2024-04-23 08:00] VITALS: BP 110/55; TEMP 97.3; O2SAT 92
[2024-04-23] MEDS: MAG SULF 1GM/100ML (MAG RUN) 1 GM in IV 1 EA IV ONE (09:13)
[2024-04-23 12:00] VITALS: BP 104/54; TEMP 97.9; O2SAT 97
[2024-04-23 16:00] VITALS: BP 103/53; TEMP 98.1; O2SAT 93
[2024-04-23 20:07] VITALS: BP 129/66; TEMP 98.1; O2SAT 95
[2024-04-24] VITALS (7 sets, daily range): BP systolic 101–131; BP diastolic 60–70; TEMP 97.5–98.4; O2SAT 94–97
[2024-04-24 05:57] LABS: HEMATOCRIT 30.9 % (36.0-47.0); HEMOGLOBIN 10.2 g/dl (12.0-15.5); MEAN CORPUSCULAR HEMOGLOBIN 33.2 pg (27.0-33.0); MEAN CORPUSCULAR VOLUME 100.7 fl (80.0-96.0); PLATELET COUNT, AUTOMATED 261 10^3/uL (150-450); RED BLOOD COUNT 3.07 10^6/uL (4.00-5.40); WHITE BLOOD COUNT 12.5 10^3/uL (4.0-10.0)
[2024-04-24 06:19] LABS: CALCIUM LEVEL 8.5 MG/DL (8.3-10.6); CREATININE FOR GFR 1.23 MG/DL (0.55-1.30); GLOMERULAR FILTRATION RATE 45.1 (>39); MAGNESIUM LEVEL 1.6 MG/DL (1.8-2.4); POTASSIUM SERUM 4.2 MMOL/L (3.5-5.1)
[2024-04-25] VITALS: BP 117/67; TEMP 97.7; O2SAT 91
[2024-04-25 03:29] VITALS: BP 119/51; TEMP 97.5; O2SAT 95
[2024-04-25 05:43] LABS: HEMATOCRIT 29.3 % (36.0-47.0); HEMOGLOBIN 9.6 g/dl (12.0-15.5); MEAN CORPUSCULAR HEMOGLOBIN 32.8 pg (27.0-33.0); MEAN CORPUSCULAR HGB CONC 32.8 g/dl (32.0-36.5); PLATELET COUNT, AUTOMATED 244 10^3/uL (150-450); RED BLOOD COUNT 2.93 10^6/uL (4.00-5.40); WHITE BLOOD COUNT 8.3 10^3/uL (4.0-10.0)
[2024-04-25 06:08] LABS: CALCIUM LEVEL 8.2 MG/DL (8.3-10.6); CREATININE FOR GFR 0.98 MG/DL (0.55-1.30); GLOMERULAR FILTRATION RATE 58.6 (>39)
[2024-04-25 08:00] VITALS: BP 146/75; TEMP 97.7; O2SAT 91
[2024-04-25] MEDS ORDERED: SUMA50TA2 PO (10:53)
[2024-04-25] MEDS ORDERED: ONDA-282 PO (10:53)
[2024-04-25] MEDS ORDERED: MAGN400C PO (10:54)
[2024-04-25 12:00] VITALS: BP 142/78; TEMP 97.7; O2SAT 93
== END 2024-04-25 14:08 | disposition home health service (06) | DRG 690 ==
LOC: M ED 18:39 → M ED INP 04-22 05:09 → M MSPAV 04-22 08:43
PROVIDERS: ADMIT Internal Medicine; ATTEND Internal Medicine
DX: N39.0 Urinary tract infection, site not specified (principal); I12.9 Hypertensive chronic kidney disease with stage 1 through stage 4 chronic kidney disease, or unspecified chronic kidney disease; E83.42 Hypomagnesemia; E78.5 Hyperlipidemia, unspecified; N18.30 Chronic kidney disease, stage 3 unspecified; F32.A Depression, unspecified; F41.9 Anxiety disorder, unspecified; G62.9 Polyneuropathy, unspecified; K44.9 Diaphragmatic hernia without obstruction or gangrene; M48.061 Spinal stenosis, lumbar region without neurogenic claudication; M48.07 Spinal stenosis, lumbosacral region; E87.6 Hypokalemia; G43.909 Migraine, unspecified, not intractable, without status migrainosus; Z79.899 Other long term (current) drug therapy

== ENCOUNTER → 2024-05-31 | Outpatient (CLI) | payer OTHER ==
[~2024-05-31] MED LIST changes: +LOPE1CAP5 PO; +MAGN400C PO
== END ==
LOC: M WHC 14:00
PROVIDERS: ATTEND Family Medicine
DX: M85.89 Other specified disorders of bone density and structure, multiple sites (principal); M81.0 Age-related osteoporosis without current pathological fracture